=== PATIENT | female | born 2000 | race Caucasian/White ===

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

== ENCOUNTER 2022-07-07 20:00 | Emergency (ER) | payer MEDICAID ==
[~2022-07-07] VITALS: Ht 160 cm; Wt 53.5 kg
[2022-07-07 20:06] VITALS: BP_SYST 130
--- NOTE | 2022-07-07 20:45 | NUR ---
Patient to ER bed 1 to gown for evaluation. Side rails up. Report given to Lupe CRUZ(reg).
--- NOTE | 2022-07-07 20:45 | NUR ---
ER at bedside
--- NOTE | 2022-07-07 20:50 | NUR ---
ER at bedside examining patient.
--- NOTE | 2022-07-07 20:59 | NUR ---
Pt ambulatory from home with c/o reddened raised bump on RLE x1 day. Pt reports she has HX of frequent abscesses throughout body that shes been dealing with x1 year. Erythema is noted from lower leg to ankle and pt reports pain when pressure is applied to extremity. Arrived to ED in no acute distress. Breathing adequately on RA. VSS. Addendum: 07/07/22 at 2126 by [id number] ANTHONY Andrade
[2022-07-07] MEDS ORDERED: KETOROLAC TROMETHAMINE 30 MG VIAL IM ONE (21:00)
[2022-07-07] MEDS ORDERED: NAPR-688 PO (21:31)
--- NOTE | 2022-07-07 21:38 | NUR ---
Patient given written and verbal discharge instructions and verbalizes understanding. ER MD Hurley discussed with patient the results and treatment provided. Patient in stable condition. ID arm band removed. Rx of Naproxen sent to pharmacy of choice. Patient educated on pain management and to follow up with PMD. Opportunity for questions provided and answered. Medication side effect fact sheet provided.
[2022-07-07 22:35] VITALS: BP_SYST 121
== END 2022-07-07 21:40 | disposition home or self-care (01) ==
LOC: SED 20:00
DX: L02.415 Cutaneous abscess of right lower limb (principal); Z79.899 Other long term (current) drug therapy
CPT/HCPCS: 99284; 96372; J1885